=== PATIENT | male | born 1995 | race Caucasian/White ===

== ENCOUNTER 2019-06-09 02:32 | Emergency (ER) | payer SELFPAY ==
[~2019-06-09] VITALS: Ht 172.7 cm; Wt 63.6 kg
[2019-06-09 02:38] VITALS: Ht 172.7 cm; Wt 63.6 kg
[2019-06-09] MEDS ORDERED: TYLENOL W/CODEI1 TAB PO (02:54)
[2019-06-09] MEDS ORDERED: KEFLEX500 MG PO (02:55)
[2019-06-09 03:03] VITALS: BP 110/69
== END 2019-06-09 03:03 | disposition home or self-care (01) ==
LOC: D.ER 02:32
DX: J02.9 Acute pharyngitis, unspecified (principal)